=== PATIENT | male | born 1995 | race Caucasian/White ===

== ENCOUNTER 2020-06-27 03:31 | Emergency (ER) | payer SELFPAY ==
[~2020-06-27] VITALS: Ht 180.3 cm; Wt 67.8 kg
[2020-06-27 03:37] VITALS: BP 127/78
[2020-06-27] MEDS ORDERED: LIDOCAINE-MPF 1%, 2ML ONE (04:22)
[2020-06-27] MEDS ORDERED: CEFTRIAXONE 250 MG ONE (04:22)
[2020-06-27] MEDS ORDERED: AZITHROMYCIN 250 MG TABLET ONE (04:27)
[2020-06-27] MEDS ORDERED: AZITHROMYCIN 500 MG TABLET PO ONE (04:30)
[2020-06-27] MEDS ORDERED: CEFTRIAXONE 250 MG IM ONE (04:30)
== END 2020-06-27 05:00 | disposition home or self-care (01) ==
LOC: ED 04:30
DX: N34.2 Other urethritis (principal); A64 Unspecified sexually transmitted disease; R30.0 Dysuria; F17.200 Nicotine dependence, unspecified, uncomplicated
CPT/HCPCS: 96372; 99283; J0696

== ENCOUNTER 2021-06-02 09:30 | Emergency (ER) | payer MEDICAID ==
[~2021-06-02] VITALS: Ht 180.3 cm; Wt 71.4 kg
--- NOTE | 2021-06-02 09:36 | NUR ---
FIRST ATTEMPT TO TRIAGE, PT IN RESTROOM
[2021-06-02 09:37] VITALS: BP 101/57
--- NOTE | 2021-06-02 10:01 | NUR ---
care services manager: Pt ambulatory to room from lobby at this time.
[2021-06-02] MEDS ORDERED: LIDOCAINE-MPF 1%, 5ML ONE (10:53)
[2021-06-02] MEDS ORDERED: DIPH,PERTUSS(ACELL),TET VAC/PF 0.5 ML IM-VACC ONE ×2 (10:55→11:00)
[2021-06-02] MEDS ORDERED: LIDOCAINE-MPF 1%, 5ML INFIL ONE (11:00)
== END 2021-06-02 11:48 | disposition home or self-care (01) ==
LOC: ED 11:34
DX: L02.414 Cutaneous abscess of left upper limb (principal); F17.210 Nicotine dependence, cigarettes, uncomplicated
CPT/HCPCS: 10060; 90471; 90715; 99406